=== PATIENT | female | born 1980 | race Caucasian/White ===

== ENCOUNTER → 2016-04-24 | Day surgery (SDC) | payer OTHER ==
--- NOTE | 2016-04-23 17:49 | History & Physical Pre-Op ---
General Information and HPI History of Present Illness: 35n yo with menorrhagia; ultrasound reveals small fibroids. 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 EENTM: Reports: no symptoms. Cardiovascular: Reports: no symptoms. Respiratory: Reports: no symptoms. GI: Reports: no symptoms. Genitourinary: Reports: no symptoms. Musculoskeletal: Reports: no symptoms. Skin: Reports: no symptoms. Neurological/Psychological: Reports: no symptoms. Hematologic/Endocrine: Reports: no symptoms. Immunologic/Allergic: Reports: no symptoms. All Other Systems: Reviewed and Negative Exam & Diagnostic Data Last 24 Hrs of Vital Signs/I&O vss Physical Exam: HEENT: NCAT Chest: CTA CV: nl S1S2 Abdomen: soft, NTND, no mass Pelvic: deferred Ext: no c/c/e Assessment/Plan Assessment/Plan: menorrhagia D&C, hysteroscopy As Ranked By This Provider Problem List: 1. Menorrhagia
[~2016-04-24] VITALS: Ht 175.3 cm; Wt 81.6 kg
[~2016-04-24] MED LIST: ALPRAZOLAM0.5 M4 PO; LEVOTHYROXINE150 MCG PO
--- NOTE | 2016-04-24 12:44 | Operative Report ---
Operative/Inv Procedure Report Surgery Date: 04/24/16 Name of Procedure: D&C hysteroscopy Pre-Operative Diagnosis: Menorrhagia Post-Operative Diagnosis: Same Estimated Blood Loss: scant Surgeon/Deputy Bailiff: KAYLA BANSAL MD Anesthesia: moderate sedation Operative/Procedure Note Note: The patient is brought to the operating room and placed on the OR table in the dorsal supine position. She was given adequate anesthesia and repositioned in a modified dorsal lithotomy. She was prepped and draped in usual sterile fashion. A weighted speculum was inserted into the vagina with the help of a Waylon retractor single-tooth tenaculum was attached to the anterior lip of the cervix. The cervix was injected with 1% lidocaine to have cc in each quadrant. An endocervical curettage was performed and the uterus was sounded to 8 cm. The cervix was dilated to accommodate the hysteroscope. The hysteroscope was placed into the fundus and the saline infusion was activated. No showed no fibroids or polyps were noted just shaggy endometrium throughout. The hysteroscope was removed and the cervix was further dilated. Sharp curettage followed revealing a moderate amount of tissue. At this point the instruments were removed hemostasis was verified the patient was awakened and sent to recovery in good condition. All needle, sponge, and is recalcitrant correct at the end of the procedure 2.
== END ==
LOC: STS 04:49
DX: N92.0 Excessive and frequent menstruation with regular cycle (principal); Z85.850 Personal history of malignant neoplasm of thyroid
CPT/HCPCS: 81025; 88305; J2250

== ENCOUNTER 2017-06-16 07:00 | Inpatient (IN) | payer OTHER ==
[~2017-06-16] VITALS: Ht 175.3 cm; Wt 108.9 kg
[~2017-06-16 07:00] MED LIST changes: +COLACE100 M1 PO; +LIOTHYRONINE SO5 MC1 PO; +PRENATAL TABLE1 EAC2 PO
--- NOTE | 2017-06-17 09:14 | History & Physical Pre-Op ---
General Information and HPI History of Present Illness: 36-year-old EDC 06/23/2017 by early ultrasound presents to labor and delivery for planned elective primary section secondary to large lower uterine segment fibroid causing soft tissue dystocia per [place] high risk ATU recommendation. Patient's care is complete and remarkable for history of thyroid cancer status post thyroidectomy on thyroid hormone replacement followed by Dr. tovar and fibroid uterus comanagement with [facility] risk clinic, positive group B strep colonization and negative Rh blood type having received program at 30 weeks of . The patient was given the option of a trial of labor however she decided to proceed with primary section. 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 EENTM: Reports: no symptoms. Cardiovascular: Reports: no symptoms. Respiratory: Reports: no symptoms. GI: Reports: no symptoms. Genitourinary: Reports: no symptoms. Musculoskeletal: Reports: no symptoms. Skin: Reports: no symptoms. Neurological/Psychological: Reports: no symptoms. Hematologic/Endocrine: Reports: no symptoms. Immunologic/Allergic: Reports: no symptoms. All Other Systems: Reviewed and Negative Exam & Diagnostic Data Last 24 Hrs of Vital Signs/I&O Intake & Output 06/17 1600 06/17 0800 06/17 0000 Intake Total Output Total Balance Patient 240 lb Weight Physical Exam: HEENT normocephalic/atraumatic Chest: Clear to auscultation bilaterally Cardiovascular: Normal S1, S2 Abdomen: Gravid, cephalic, estimated weight 6-1/2 pounds Pelvic: Deferred Extremities: No clubbing cyanosis or edema Neurologic: Nonfocal Assessment/Plan Assessment/Plan: 39 week fibroid uterus causing soft tissue dystocia Plan: Primary section As Ranked By This Provider Problem List: 1. Uterine fibroid during , antepartum
--- NOTE | 2017-06-17 09:19 | Labor & Delivery Summary ---
Delivery Summary Section: Section: primary Indication: Fibroidsoft tissue dystocia Placenta: Placenta: normal, 3 vessel, manual, nuchal cord (x_) Baby's Weight: 7/2 Apgars - 1 Min: 9 Apgars - 5 Min: 9
--- NOTE | 2017-06-17 09:23 | Operative Report ---
Operative/Inv Procedure Report Surgery Date: 06/17/17 Name of Procedure: Primary low transverse section Pre-Operative Diagnosis: 39 week , fibroid uterus causing soft tissue dystocia Post-Operative Diagnosis: Same Estimated Blood Loss: 1000 Ml Surgeon/Parking Attendant: Tristin Weldon MD,Du Jaramillo M.D. Anesthesia: SPINAL Operative/Procedure Note Note: The patient was brought to the operating room and placed on the OR table in the sitting position where she underwent spinal anesthetic without complication. She was repositioned into dorsal supine with a block under her right. Venodyne boots were placed and activated and a Pichardo catheter was inserted into the bladder and drained clear yellow urine. The abdomen was then prepped and draped in usual sterile fashion and tested. A Pfannenstiel skin incision made with scalpel and taken down to the layer of the fascia. The fascia was nicked in the midline and extended bilaterally. The rectus muscles were and the peritoneal cavity was entered bluntly. A Shaila bladder blade was inserted to protect the bladder from the operative field. A bladder flap was created using Metzenbaum scissors and this was placed behind the bladder blade. A low transverse uterine incision was made with the scalpel and a liveborn female infant was delivered atraumatically and handed off to the waiting lens inserter. A 8-9 cm large submucous fibroid was noted at the opening of the uterus however was not bleeding. The uterus was closed in 2 layers of 0 Polysorb, the second indicating the first. Fallopian tubes and ovaries appeared normal bilaterally. The abdomen and pelvis were copiously irrigated and the uterus was placed back into the abdominal cavity. The placenta had been manually removed intact with three-vessel cord prior to closure. The uterus also had and wiped clean of all clot and tissue debris prior to closure. The suture line was again visualized inside the abdomen and one ypfcpo-th-adcue suture was needed on the left side. Hemostasis was good. The coagulant powder was used on the incision and the rectus muscles were reapproximated using 0 Polysorb in a mattress suture. Fascia was then reapproximated using 0 Polysorb in a running nonlocking fashion. Subcutaneous tissues were irrigated and coagulated were needed and closed with 20 plain suture material. Skin was closed using a subcuticular stitch of 4-0 Biosyn on a Bossman needle. Bacitracin was applied to the wound patient was transferred to recovery in good condition. All needle, sponge, and inspected counts were correct at the end of the procedure 4.
[2017-06-17 19:36] VITALS: BP 126/72
[2017-06-18 09:25] LABS: ABSOLUTE BASOPHIL COUNT 0 /CUMM (0.0-0.2); ABSOLUTE EOSINOPHIL COUNT 0.1 /CUMM (0.0-0.7); ABSOLUTE GRANULOCYTE CT 7.9 /CUMM (1.4-6.5); BASOPHIL % 0.1 % (0.0-2.0); RED BLOOD CELL CT 3.52 /CUMM (4.20-5.40)
[2017-06-18 09:59] LABS: ABSOLUTE LYMPH COUNT 2.2 /CUMM (1.2-3.4); ABSOLUTE MONOCYTE COUNT 0.6 /CUMM (0.10-0.60); EOSINOPHIL % 0.7 % (0-5); GRANULOCYTE % 72.9 % (42.2-75.2); MEAN CORPUSCULAR HGB 31.3 PG (27.0-31.0); MEAN CORPUSCULAR HGB CONC 33.9 G/DL (33.0-37.0); MEAN CORPUSCULAR VOLUME 92.3 FL (81.0-99.0); MEAN PLATELET VOLUME 7.9 FL (7.4-10.4); PLATELET COUNT 246 /CUMM (130-400); WHITE BLOOD CELL COUNT 10.8 /CUMM (4.8-10.8)
[2017-06-18 10:37] LABS: HEMATOCRIT 32.5 % (37-47)
[2017-06-19] MEDS ORDERED: PERCOCET 5-3251 EACH PO (09:13)
[2017-06-19] MEDS ORDERED: IBUPROFEN800 M1 PO (09:13)
== END 2017-06-20 09:45 | DRG 765 ==
LOC: GNO 06-17 05:59
PROVIDERS: Obstetrics & Gynecology
PROC: 10D00Z1 Extraction of Products of Conception, Low, Open Approach (ICD-10-PCS; principal; 2017-06-17)
PROC: 3E0334Z Introduction of Serum, Toxoid and Vaccine into Peripheral Vein, Percutaneous Approach (ICD-10-PCS; 2017-06-18)
DX: O62.4 Hypertonic, incoordinate, and prolonged uterine contractions (principal); O36.0930 Maternal care for other rhesus isoimmunization, third trimester, not applicable or unspecified; Z37.0 Single live birth; Z3A.39 39 weeks gestation of pregnancy; Z85.850 Personal history of malignant neoplasm of thyroid; O99.824 Streptococcus B carrier state complicating childbirth
CPT/HCPCS: GNOS; 36415; 87086; J0690; J1200; J1650; J1885; J2790; J7120